=== PATIENT | male | born 1975 | race Two or more races ===

== ENCOUNTER 2025-01-20 15:41 | Emergency (ER) | payer OTHER ==
[~2025-01-20] VITALS: Ht 172.7 cm; Wt 82.0 kg
[2025-01-20 16:00] VITALS: TEMP 99.3
[2025-01-20] MEDS: LORazepam 2MG/ML-1ML VIAL IV ONE (16:00)
[2025-01-20] MEDS: SODIUM CHLORIDE 0.9% 1,000 ML IV ONE (16:00)
[2025-01-20] MEDS ORDERED: CHLO25CA10 PO (16:41)
[2025-01-20] MEDS ORDERED: LORA-1121 PO (16:41)
--- NOTE | 2025-01-20 16:42 | ED.PDOC ---
GI ASSESSMENT HPI Comments 49 Year old male brought in by family complaining of feeling anxious since this morning. Patient states he is a recovering alcoholic, however has been binge drinking approximately 8-10 beers a day for the past week, then tried to stop drinking this morning. He feels anxious, is having palpitations, and feels like he is going into alcohol withdrawal. He denies any pain, seizure, syncope, nausea or vomiting. Time Seen by MD: 15:48 Reviewed Notes: Nurses Notes Allergies: Uncoded Allergies: contrast dye (Allergy, Unknown, 01/20/25) Home Meds Active Scripts Chlordiazepoxide HCl (Chlordiazepoxide Hydrochl) 25 Mg Cap, 1-2 CAP PO TID PRN, #30 CAP Prov:IMELDA MILLS MD 01/20/25 Lorazepam (ATIVAN TABLET) 0.5 Mg Tb, 1-2 TAB PO TID PRN, #30 TAB Prov:IMELDA MILLS MD 01/20/25 Information Source: Patient Mode of Arrival: Ambulatory Past Medical History PAST MEDICAL HISTORY: Denies Surgical History: Denies all surgeries Family History Family History: Reviewed,noncontributory to illness Social History Smoker: Non-Smoker Alcohol: Heavy Drugs: Denies Drug Use Lives In: Home All Other Systems: Reviewed and Negative (Comprehensive systems review obtained and negative except for what is stated in the HPI.) Physical Exam General Appearance: Mild Distress HEENT: Other (Pupils and face symmetric. Moist mucous membranes.) Neck: Full Range of Motion, Normal Inspection Respiratory: Lungs Clear, No Accessory Muscle Use, No Respiratory Distress, Normal Breath Sounds Cardiovascular: No Edema, No JVD, Tachycardia Breast Exam: Deferred Gastrointestinal: Non Tender, Soft Genitalia: Deferred Pelvic: Deferred Rectal: Deferred Extremities: Normal inspection, Normal range of motion, Non-tender, No pedal edema Neurologic: Alert (Oriented x4), Normal Affect, Normal Mood, Other (Ambulatory without ataxia or tremor) Cerebellar Function: NOT DONE Reflexes: NOT DONE Skin: Dry, Normal Color, Warm Lymphatic: NOT DONE EKG EKG : Comments Sinus tach, rate 118, normal intervals, normal axis, possible incomplete right bundle-branch block, left anterior fascicular block, nonspecific T change. Was a procedure done? Was a procedure done?: No GI differential Dx Differential Diagnosis: Dehydration, Electrolyte Imbalance, Anemia Other Differential Diagnosis Alcohol withdrawal, among others X-Ray, Labs, Meds, VS Vital Signs Date Time Temp Pulse Resp B/P (MAP) Pulse Ox O2 Delivery O2 Flow Rate FiO2 01/20/25 18:04 100 18 134/89 (104) 95 01/20/25 18:04 100 18 95 Room Air 01/20/25 16:00 99.3 122 18 137/84 (101) 96 99.3 Lab Test 01/20/25 16:38 Range/Units White Blood Count 3.6 L 4.4-10.8 10^3/uL Red Blood Count 4.86 4.5-5.90 10^6/uL Hemoglobin 15.4 13.5-17.5 g/dL Hematocrit 44.3 41.0-53.0 % Mean Corpuscular Volume 91.1 80.0-100.0 fL Mean Corpuscular Hemoglobin 31.7 28.0-32.0 pg Mean Corpuscular Hemoglobin Concent 34.8 32.0-36.0 g/dL Red Cell Distribution Width 14.3 11.8-14.3 % Platelet Count 284 140-450 10^3/uL Mean Platelet Volume 7.3 6.9-10.8 fL Neutrophils (%) (Auto) 52.3 37.0-80.0 % Lymphocytes (%) (Auto) 37.0 10.0-50.0 % Monocytes (%) (Auto) 8.9 0.0-12.0 % Eosinophils (%) (Auto) 0.0 0.0-7.0 % Basophils (%) (Auto) 1.8 0.0-2.0 % Neutrophils # (Auto) 1.9 1.6-8.6 10 ^3/uL Lymphocytes # (Auto) 1.3 0.4-5.4 10 ^3/uL Monocytes # (Auto) 0.3 0-1.3 10 ^3/uL Eosinophils # (Auto) 0 0-0.8 10 ^3/uL Basophils # (Auto) 0.1 0-0.2 10 ^3/uL Nucleated Red Blood Cells 0.0 % Sodium Level 138 136-145 mmol/L Potassium Level 3.4 L 3.5-5.1 mmol/L Chloride Level 98 98-107 mmol/L Carbon Dioxide Level 27 20-31 mmol/L Anion Gap 13 5-15 Blood Urea Nitrogen 6 L 9-23 mg/dL Creatinine 0.93 0.700-1.30 mg/dL Glomerular Filtration Rate Calc 100 >90 mL/min BUN/Creatinine Ratio 6.5 L 10.0-20.0 Serum Glucose 145 H 74-106 mg/dL Calcium Level 9.8 8.7-10.4 mg/dL Current Medications Medications (Trade) Dose Ordered Sig/Keira Route Start Time Stop Time Status Last Admin Sodium Chloride 1,000 ml @ 1,000 mls/hr Q1H ONCE IV 01/20/25 16:00 01/20/25 16:59 DC 01/20/25 16:00 Lorazepam (Ativan Inj) 1 mg ONCE ONCE IV 01/20/25 16:00 01/20/25 16:01 DC 01/20/25 16:00 Chlordiazepoxide HCl (Librium Capsule) 50 mg ONCE ONCE PO 01/20/25 16:00 01/20/25 16:01 DC 01/20/25 16:00 Potassium Bicarbonate (Klor-Con/Ef) 50 meq ONCE ONCE PO 01/20/25 17:15 01/20/25 17:26 DC 01/20/25 17:35 X-Ray, Labs, Meds, VS Comment 49-year-old male with a history of alcohol dependence brought in by family complaining of anxiety and palpitations and stating he is experiencing alcohol withdrawal Vitals remarkable for rate 118 Exam remarkable for tachycardia Rhythm strip independently interpreted by me: Sinus tach, rate 118, no ectopy. CBC remarkable for WBC 3.6, basic metabolic panel remarkable for potassium 3.4 Patient treated with the following in the ED: 1 L 0.9 normal saline IV bolus, A tivan 1 mg IV, Librium 50 mg p.o., effervescent potassium 50 mEq p.o. your On re-evaluation, patient states symptoms have improved. Vitals were stable. Heart rate has improved. Patient is not tremulous and states he is comfortable being discharged. Patient appears stable for discharge with close outpatient follow-up with his primary physician. Rx Ativan, Librium Time of 1ST Reevaluation: 16:38 Reevaluation 1ST: Improved Patient Education/Counseling: Diagnosis, Treatment, Need For Follow Up Family Education/Counseling: No Family Present SEPSIS Sepsis Screen SEPSIS EXCLUSION NOTE: Sepsis Exclusion Note: Patient presents with SIRS criteria, but the SIRS response is attributed to [ alcohol withdrawal], not a suspected infection. Sepsis bundle is not initiated at this time, due to this reason. Further management will focus on the treatment of the above condition (s). Physician Orders Urinalysis (01/20/25 15:59) Electrocardigram (01/20/25 15:59) Vital Signs Date Time Temp Pulse Resp B/P (MAP) Pulse Ox O2 Delivery O2 Flow Rate FiO2 01/20/25 18:04 100 18 134/89 (104) 95 01/20/25 18:04 100 18 95 Room Air 01/20/25 16:00 99.3 122 18 137/84 (101) 96 99.3 Laboratory Tests Test 01/20/25 16:38 White Blood Count 3.6 10^3/uL (4.4-10.8) L Medications Medications Dose Ordered Sig/Keira Route Start Time Stop Time Status Last Admin Dose Admin Chlordiazepoxide HCl 50 mg ONCE ONCE PO 01/20/25 16:00 01/20/25 16:01 DC 01/20/25 16:00 Lorazepam 1 mg ONCE ONCE IV 01/20/25 16:00 01/20/25 16:01 DC 01/20/25 16:00 Potassium Bicarbonate 50 meq ONCE ONCE PO 01/20/25 17:15 01/20/25 17:26 DC 01/20/25 17:35 Sodium Chloride 1,000 ml @ 1,000 mls/hr Q1H ONCE IV 01/20/25 16:00 01/20/25 16:59 DC 01/20/25 16:00 Departure 1 Departure Time of Disposition: 16:38 Impression: Primary Impression: Alcohol withdrawal Qualified Codes: F10.930 - Alcohol use, unspecified with withdrawal, uncomplicated Disposition: 01 HOME / SELF CARE / HOMELESS Condition: Stable Additional Instructions: Your blood tests showed your potassium was slightly low. We have corrected this in the ER. I have prescribed medication that treats alcohol withdrawal. Follow-up with your primary doctor in 1-2 days. Return to ER for persistent or worsening symptoms. e-Prescriptions Chlordiazepoxide HCl (Chlordiazepoxide Hydrochl) 25 Mg Cap 1-2 CAP PO TID PRN, #30 CAP Prov: IMELDA MILLS MD 01/20/25 Lorazepam (ATIVAN TABLET) 0.5 Mg Tb 1-2 TAB PO TID PRN, #30 TAB Prov: IMELDA MILLS MD 01/20/25 Discharged With: Relative Critical Care Note Critical Care Time?: No Stability Stability form required: No Heart Score Heart Score: Heart Score Response (Comments) Value History N/A 0 EKG N/A 0 Age N/A 0 Risk Factors N/A 0 Troponin N/A 0 Total 0 IMELDA MILLS MD Jan 20, 2025 16:42
[2025-01-20 16:58] LABS: Hematocrit 44.3 % (41.0-53.0); Hemoglobin 15.4 g/dL (13.5-17.5); Mean Corpuscular Hemoglobin 31.7 pg (28.0-32.0); Mean Corpuscular Volume 91.1 fL (80.0-100.0); Nucleated Red Blood Cells % 0.0 %
[2025-01-20 16:59] LABS: Chloride 98 mmol/L (98-107); Sodium 138 mmol/L (136-145)
[2025-01-20 17:00] LABS: Anion Gap 13 (5-15); Calcium 9.8 mg/dL (8.7-10.4); Carbon Dioxide 27 mmol/L (20-31); Potassium 3.4 mmol/L (3.5-5.1)
[2025-01-20 17:05] LABS: BUN/Creatinine Ratio 6.5 (10.0-20.0); Blood Urea Nitrogen 6 mg/dL (9-23); Glucose 145 mg/dL (74-106)
[2025-01-20] MEDS: POTASSIUM EFFERVESENT TAB 25 MEQ PO ONE (17:35)
[2025-01-20 18:04] VITALS: BP 134/89; PULSE 100; RESP 18; O2SAT 95
--- NOTE | 2025-01-21 07:21 | ECG ---
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
== END 2025-01-20 18:09 | disposition home or self-care (01) ==
LOC: ER 15:41
DX: F10.930 Alcohol use, unspecified with withdrawal, uncomplicated (principal); Y90.9 Presence of alcohol in blood, level not specified
CPT/HCPCS: 36415; 80048; 85025; 93005; 96361; 96374; 99284; J2060; J7030